=== PATIENT | male | born 1945 ===

== ENCOUNTER 2018-01-18 15:01 | Emergency (ER) | payer OTHER, MEDICARE ==
--- NOTE | 2018-01-18 15:51 | RAD REPORT ---
EXAM DESCRIPTION: CT - Facial Bones W/ Mpr - 01/18/2018 3:34 pm CLINICAL HISTORY: Fall, right periorbital facial trauma COMPARISON: None. TECHNIQUE: Axial 2 millimeter thick images of the facial bones were obtained with sagittal and coron al reconstruction imaging. All CT scans are performed using dose optimization technique as appropriate and may include automated exposure control or mA/KV adjustment according to patient size. FINDINGS: No facial fracture is seen. Mastoid air cells and paranasal sinuses are fully aerated. Pat ient has a pronounced left deviation of the nasal septum on a chronic basis. Large middle terminate c oncha bullosa on the right. No globe or orbital content injury. Contusion and edema changes are prese nt along the superior and lateral right orbital rim. IMPRESSION: Periorbital contusion and edema changes on the right. No facial fracture.
--- NOTE | 2018-01-18 16:02 | RAD REPORT ---
EXAM DESCRIPTION: RAD - Chest Pa And Lat (2 Views) - 01/18/2018 3:55 pm CLINICAL HISTORY: Fall, chest injury COMPARISON: None. TECHNIQUE: PA and lateral views of the chest were obtained. FINDINGS: The lungs are underinflated. No pneumothorax or pulmonary contusion. Heart size is alisha l and central vasculature is within normal limits. No pleural effusion or pneumothorax seen. Thorac ic spine degenerative change present. No gross rib deformity seen. Concerns for rib fracture can be a ddressed with dedicated imaging. No aortic abnormality. IMPRESSION: No acute cardiopulmonary finding. Ongoing concerns for rib injury could be addressed wi dedicated imaging.
--- NOTE | 2018-01-18 16:08 | EDPHYS ---
Physician Documentation [facility] Name: Alton Grewal Age: 72 yrs Sex: Male : 1945 Arrival Date: 01/18/2018 Time: 15:06 Bed 27 Private MD: ED Physician Alvin Barnett HPI: 01/18 15:22 This 72 yrs old Male presents to ER via Ambulatory with complaints of Laceration To rh1 Forehead. 15:22 The patient has a laceration related to: walking occurred pharmacy, and there are no rh1 complicating factors. The injury was accidental. The laceration(s) is(are) located on the right eye. Onset: The symptoms/episode began/occurred just prior to arrival. Associated signs and symptoms: Pertinent negatives: dizziness, heavy bleeding, loss of consciousness. The patient has not experienced similar symptoms in the past. The patient has not recently seen a physician. Pt. reports he tripped and fell while walking up a ramp just [employer], hitting right head on concrete. Denies any LOC. Reports mild pain at right eye. He has had runny nose, congestion, and productive yellow coughing for the past 10 days, denies any fever, SOB, chest pain.. Historical: - Allergies: 15:09 No Known Allergies; hj - PMHx: 15:09 Hyperlipidemia; Hypertension; hj - PSHx: 15:09 None; hj - Immunization history:: Flu vaccine status is unknown. - Social history:: Smoking status: Patient/guardian denies using tobacco, the patient reports quitting approximately 20 years ago. ROS: 15:22 Constitutional: Negative for fever, chills rh1 15:22 ENT: Positive for rhinorrhea, sinus congestion, Negative for sore throat, difficulty swallowing, difficulty handling secretions, hoarseness. 15:22 Cardiovascular: Negative for chest pain, edema, palpitations. 15:22 Respiratory: Positive for cough, with yellow sputum, Negative for dyspnea on exertion, hemoptysis, shortness of breath, wheezing. 15:22 Abdomen/GI: Negative for abdominal pain, nausea and vomiting. 15:22 Skin: Positive for abrasion(s), Negative for laceration(s). 15:22 Neuro: Positive for headache, right face, Negative for altered mental status, dizziness, loss of consciousness, numbness, tingling, weakness. 15:22 All other systems are negative. Exam: 15:22 Constitutional: This is a well developed, well nourished patient who is awake, alert, rh1 and in no acute distress. 15:22 ENT: Nares patent. No nasal discharge, no septal abnormalities noted. Tympanic membranes are normal and external auditory canals are clear. Oropharynx with no redness, swelling, or masses, exudates, or evidence of obstruction, uvula midline. Mucous membranes moist. Neck: Trachea midline, and no cervical lymphadenopathy. Supple, full range of motion without nuchal rigidity. No Meningismus. 15:22 Chest/axilla: Normal chest wall appearance and motion. Nontender with no deformity. No lesions are appreciated. Cardiovascular: Regular rate and rhythm with a normal S1 and S2. No gallops, murmurs, or rubs. No JVD. No pulse deficits. Respiratory: Lungs have equal breath sounds bilaterally, clear to auscultation. No rales, rhonchi or wheezes noted. No increased work of breathing. Abdomen/GI: Soft, non-tender, with normal bowel sounds. No distension. No guarding or rebound. No evidence of tenderness throughout. Back: No spinal tenderness. No costovertebral tenderness. Full range of motion. Skin: Warm, dry with normal turgor. Normal color with no rashes, no lesions, and no evidence of cellulitis. MS/ Extremity: Pulses equal, no cyanosis. Neurovascular intact. Full, normal range of motion. 15:22 Head/face: Exam is negative for chamberlain signs, raccoon eyes, Noted is abrasion(s), that are mild, of the outer aspect of right eyebrow and right supraorbital ridge, swelling, that is moderate, of the outer aspect of right eyebrow, tenderness, that is moderate, of the right supraorbital ridge. 15:22 Eyes: Pupils: no acute changes, normal size, normal reaction to light, equal, right pupil is approximately 3 mm(s), left pupil is approximately 3 mm(s), Extraocular movements: intact throughout, Nystagmus: is not appreciated. 15:22 Neck: C-spine: appears grossly normal, no vertebral tenderness, no crepitus. 15:22 Neuro: Orientation: is normal, to person, place \T\ time. Mentation: is normal, lucid, able to follow commands, Motor: is normal, moves all fours, strength is 5/5 in all extremities, Sensation: is normal, no obvious gross deficits, numbness, is not appreciated, tingling, is not appreciated, Gait: is steady, at a normal pace, without difficulty. Vital Signs: 15:10 BP 144 / 85; Pulse 92; Resp 18; Temp 97.6(TE); Pulse Ox 95% on R/A; Weight 131.54 kg; hj Height 6 ft. 0 in. (182.88 cm); Pain 5/10; 16:32 BP 131 / 101; Pulse 87; Resp 17; rk2 15:10 Body Mass Index 39.33 (131.54 kg, 182.88 cm) hj MDM: 15:12 Patient medically screened. rh1 16:04 Data reviewed: vital signs, nurses notes, radiologic studies, CT scan, plain films, and rh1 as a result, I will discharge patient. Data interpreted: Pulse oximetry: on room air is 95 %. Interpretation: acceptable. Counseling: I had a detailed discussion with the patient and/or guardian regarding: the historical points, exam findings, and any diagnostic results supporting the discharge/admit diagnosis, radiology results, the need for outpatient follow up, a family practitioner, to return to the emergency department if symptoms worsen or persist or if there are any questions or concerns that arise at home. 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 Exp: rk2 05/07/2020. Lot #: [id number]. } Route: IM; Site: right deltoid; 16:38 Follow up: Response: No adverse reaction rk2 Disposition: 16:41 Co-signature as Attending Physician, Alvin Barnett MD I agree with the assessment and kdr plan of care. Disposition: 01/18/18 16:07 Discharged to Home. Impression: Superficial injury of other parts of head, Acute upper respiratory infection, unspecified, Bronchitis, not specified as acute or chronic. - Condition is Stable. - Discharge Instructions: Acute Bronchitis, Concussion, Adult, Post-Concussion Syndrome, Upper Respiratory Infection, Adult, Cough, Child, Cough, Adult. - Prescriptions for Tessalon Perles 100 mg Oral Capsule - take 1 capsule by ORAL route every 8 hours As needed; 15 capsule. Zithromax Z- Goldy 250 mg Oral Tablet - take 1 tablet by ORAL route as directed for 5 days Day 1 - take two (2) tablets one time. Day 2, 3, 4 , 5 take one (1) tablet once daily.; 6 tablet. - Medication Reconciliation Form, Thank You Letter, Antibiotic Education, Prescription Opioid Use form. - Follow up: Private Physician; When: 1 - 2 days; Reason: Recheck today's complaints, Continuance of care, Re-evaluation by your physician. Follow up: Emergency Department; When: As needed; Reason: Fever > 102 F, If symptoms return, Trouble breathing, Worsening of condition. - Problem is new. - Symptoms have improved. Signatures: Dispatcher [employer] EDMS Alvin Barnett MD MD kdr Jones, Rachel, NP LIBRARY CIRCULATION DEPARTMENT CHIEF rh1 Ion Delgado RN RN Elda Barker RN RN rk2
--- NOTE | 2018-01-18 16:08 | ER ---
Nurse's Notes [facility] Name: Alton Grewal Age: 72 yrs Sex: Male : 1945 Arrival Date: 01/18/2018 Time: 15:06 Bed 27 Private MD: Diagnosis: Superficial injury of other parts of head;Acute upper respiratory infection, unspecified;Bronchitis, not specified as acute or chronic Presentation: 01/18 15:07 Presenting complaint: Patient states: 10 mins ago, i walking and a had a missed step hj and fell face forward and hurt the R side of the face; denies LOC; denies taking blood thinners;. Transition of care: patient was not received from another setting of care. Onset of symptoms was January 18, 2018. Care prior to arrival: None. 15:07 Method Of Arrival: Ambulatory 15:07 Acuity: YENNI 4 hj Triage Assessment: 15:09 General: Appears in no apparent distress. uncomfortable, Behavior is calm, cooperative, hj appropriate for age. Pain: Complains of pain in right eye. Historical: - Allergies: 15:09 No Known Allergies; hj - PMHx: 15:09 Hyperlipidemia; Hypertension; hj - PSHx: 15:09 None; hj - Immunization history:: Flu vaccine status is unknown. - Social history:: Smoking status: Patient/guardian denies using tobacco, the patient reports quitting approximately 20 years ago. Screenin:00 Abuse screen: Denies threats or abuse. rk2 16:00 Nutritional screening: No deficits noted. Tuberculosis screening: No symptoms or risk rk2 factors identified. Fall Risk Fall in past 12 months (25 points). Assessment: 16:00 General: Appears in no apparent distress. rk2 16:00 Pain: Complains of pain in face and right eye. Neuro: Level of Consciousness is alert, rk2 obeys commands, Oriented to person, place, time, situation. Respiratory: Airway is patent Respiratory effort is even, unlabored, Respiratory pattern is regular, symmetrical. Derm: Skin is pink, warm \T\ dry. Injury Description: Abrasion sustained to right leg and left leg and face. Vital Signs: 15:10 BP 144 / 85; Pulse 92; Resp 18; Temp 97.6(TE); Pulse Ox 95% on R/A; Weight 131.54 kg; hj Height 6 ft. 0 in. (182.88 cm); Pain 5/10; 16:32 BP 131 / 101; Pulse 87; Resp 17; rk2 15:10 Body Mass Index 39.33 (131.54 kg, 182.88 cm) ED Course: 15:06 Patient arrived in ED. tw3 15:09 Triage completed. hj 15:10 Arm band placed on left wrist. hj 15:12 Elda Barker RN is Primary Nurse. rk2 15:12 Tatyana Joseph NP is PHCP. rh1 15:12 Alvin Barnett MD is Attending Physician. rh1 15:34 CT completed. Patient moved to CT via wheelchair. Patient moved back from CT. 15:34 CT Facial Bones W/O Con In Process Unspecified. EDMS 15:44 Chest Pa And Lat (2 Views) XRAY Sent. rk2 15:51 Chest Pa And Lat (2 Views) XRAY In Process Unspecified. EDMS 16:00 Patient has correct armband on for positive identification. Bed in low position. Call rk2 light in reach. 16:03 X-ray completed. Patient tolerated procedure well. ap2 16:38 No provider procedures requiring assistance completed. Patient did not have IV access rk2 during this emergency room visit. 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 Exp: rk2 05/07/2020. Lot #: [id number]. } Route: IM; Site: right deltoid; 16:38 Follow up: Response: No adverse reaction rk2 Outcome: 16:07 Discharge ordered by . rh1 16:38 Discharged to home ambulatory. rk2 16:38 Condition: good 16:38 Discharge instructions given to patient, Prescriptions given X 2. 16:39 Patient left the ED. rk2 Signatures: Dispatcher [employer] EDGA Tressa Zendejas Tatyana Joseph NP [employer] 1 Ion Delgado RN RN hj Wade, Tia tw3 Elda Barker RN RN rk2 Lindsey Mcgee ap2 Corrections: (The following items were deleted from the chart) 15:12 15:10 Pulse 92bpm; Resp 18bpm; Pulse Ox 95% RA; Temp 97.6F Temporal; 131.54 kg; Height 6 ft. 0 in.; BMI: 39.3; Pain 5/10; hj
[2018-01-18] MEDS ORDERED: TETANUS & DIPHTHERIA TOX,ADULT 0.5 ML VIAL ONE (16:17)
== END 2018-01-18 16:39 | disposition home or self-care (01) ==
LOC: ER 15:01
DX: J40 Bronchitis, not specified as acute or chronic (principal); I10 Essential (primary) hypertension; W01.0XXA Fall on same level from slipping, tripping and stumbling without subsequent striking against object, initial encounter; Y93.01 Activity, walking, marching and hiking; Y92.89 Other specified places as the place of occurrence of the external cause; Z23 Encounter for immunization
CPT/HCPCS: 70486; 71046; 76377; 90714; 99284